=== PATIENT | male | born 1985 | race Caucasian/White ===

== ENCOUNTER 2020-11-27 02:36 | Emergency (ER) | payer OTHER ==
[~2020-11-27] VITALS: Ht 177.8 cm; Wt 131.1 kg
[2020-11-27] MEDS ORDERED: KETOROLAC TROMETHAMINE 30 MG/ML VIAL IV STA (02:43)
[2020-11-27] MEDS ORDERED: ORPHENADRINE CITRATE 30 MG/ML VIAL IM ONE (02:45)
[2020-11-27 02:47] LABS: BASOPHILS % 0.1 % (0.0-1.0); HEMATOCRIT 41.2 % (38.2-49.6); HEMOGLOBIN 13.4 g/dL (14.0-18.0); LYMPHOCYTES # (AUTO) 1.5 (1.0-3.2); LYMPHOCYTES % 15.5 % (18.0-39.1); MEAN CORPUSCULAR HEMOGLOBIN 29.7 pg (28-32); MEAN CORPUSCULAR HGB CONC 32.5 g/dL (31-35); MEAN CORPUSCULAR VOLUME 91.4 fL (81-99); MONOCYTES # (AUTO) 0.6 (0.2-0.8); MONOCYTES % 5.8 % (4.4-11.3); NEUTROPHILS # (AUTO) 7.6 (2.1-6.9); NEUTROPHILS % 78.3 % (38.7-80.0); PLATELET COUNT 292 x10e3/uL (140-360); RED BLOOD COUNT 4.51 x10e6/uL (4.3-5.7); RED CELL DISTRIBUTION WIDTH 12.9 % (11.7-14.4)
[2020-11-27 02:52] VITALS: BP 105/66
[2020-11-27] MEDS ORDERED: ORPHENADRINE CITRATE 30 MG/ML VIAL ONE (02:54)
[2020-11-27] MEDS ORDERED: KETOROLAC TROMETHAMINE 30 MG/ML VIAL ONE (02:54)
[2020-11-27 03:04] LABS: ANION GAP 15.8 mmol/L (8-16); CALCIUM 8.9 mg/dL (8.4-10.2); CREATININE, SERUM 1.1 mg/dL (0.72-1.25); POTASSIUM 3.8 mmol/L (3.5-5.1)
[2020-11-27] MEDS ORDERED: ONDANSETRON HCL INJ 2MG/ML 2ML 2 MG/ML VIAL IV STA (03:31)
[2020-11-27] MEDS ORDERED: ONDANSETRON HCL INJ 2MG/ML 2ML 2 MG/ML VIAL ONE (03:39)
[2020-11-27] MEDS ORDERED: SODIUM CHLORIDE 0.9% 100 ML ONE (03:43)
[2020-11-27] MEDS ORDERED: CASIRIVIMAB/IMDEVIMAB 10 ML in SODIUM CHLORIDE 0.9% 100 ML IV ONE (03:45)
[2020-11-27] MEDS ORDERED: GADOBENATE DIMEGLUMINE 1 ML IV ONE (04:04)
== END 2020-11-27 05:32 | disposition home or self-care (01) ==
LOC: ER 02:43
DX: U07.1 COVID-19 (principal); M54.41 Lumbago with sciatica, right side; I10 Essential (primary) hypertension; E78.5 Hyperlipidemia, unspecified; G47.00 Insomnia, unspecified
CPT/HCPCS: 36415; 72158; 80048; 85025; 99283; A9577; J1885; J2360; J2405; J7050; U0002

== ENCOUNTER 2021-11-28 18:11 | Observation (INO) | payer OTHER ==
[~2021-11-28] VITALS: Ht 180.3 cm; Wt 131.5 kg
[2021-11-28] MEDS ORDERED: SODIUM CHLORIDE 0.9% 1000ML 1,000 ML IV ONE ×2 (19:00→21:45)
[2021-11-28] MEDS ORDERED: Morphine 4mg INJECTION 4 MG/ML INJ IV PRN (19:00)
[2021-11-28 19:08] LABS: BASOPHILS % 0.2 % (0.0-1.0); EOSINOPHILS # (AUTO) 0.1 (0.0-0.4); EOSINOPHILS % 0.3 % (0.0-6.0); HEMATOCRIT 44.8 % (38.2-49.6); HEMOGLOBIN 14.6 g/dL (14.0-18.0); LYMPHOCYTES # (AUTO) 1.4 (1.0-3.2); LYMPHOCYTES % 8.7 % (18.0-39.1); MEAN CORPUSCULAR HEMOGLOBIN 29.8 pg (28-32); MEAN CORPUSCULAR HGB CONC 32.6 g/dL (31-35); MEAN CORPUSCULAR VOLUME 91.4 fL (81-99); MONOCYTES % 6.4 % (4.4-11.3); NEUTROPHILS # (AUTO) 13.3 (2.1-6.9); NEUTROPHILS % 84.1 % (38.7-80.0); PLATELET COUNT 342 x10e3/uL (140-360); RED CELL DISTRIBUTION WIDTH 11.8 % (11.7-14.4)
[2021-11-28] MEDS ORDERED: IOPAMIDOL 370 MG/ML 100 ML INFUS..BTL INJ ONE (19:19)
[2021-11-28 19:27] LABS: ALBUMIN 4.3 g/dL (3.5-5.0); ALBUMIN/GLOBULIN RATIO 1.3 (0.8-2.0); ANION GAP 15.7 mmol/L (8-16); CALCIUM 9.6 mg/dL (8.4-10.2); CREATININE, SERUM 1.12 mg/dL (0.72-1.25); POTASSIUM 3.7 mmol/L (3.5-5.1)
[2021-11-28] MEDS: ONDANSETRON HCL INJ 2MG/ML 2ML 2 MG/ML VIAL IV PRN (19:35)
[2021-11-28] MEDS ORDERED: ACETAMINOPHEN 325 MG TAB PO STA (19:57)
[2021-11-28] MEDS ORDERED: HYDROMORPHONE 1MG/1ML INJ IV STA (20:36)
[2021-11-28] MEDS ORDERED: ACETAMINOPHEN 1000 MG/100 ML IV STA (21:04)
[2021-11-28] MEDS ORDERED: ACETAMINOPHEN 1000 MG/100 ML 100 ML IV ONE (21:14)
[2021-11-28] MEDS ORDERED: HYDROMORPHONE 1MG/1ML INJ IV PRN (22:00)
[2021-11-28] MEDS: SODIUM CHLORIDE 0.9% 1000ML 1,000 ML IV SCH (22:00)
[2021-11-28] MEDS ORDERED: ONDANSETRON HCL INJ 2MG/ML 2ML 2 MG/ML VIAL IV PRN (22:00)
[2021-11-28] MEDS ORDERED: SODIUM CHLORIDE 0.9% 1000ML 1,000 ML ONE (22:03)
[2021-11-28 22:13] LABS: CLARITY,URINE CLEAR (CLEAR); COLOR,URINE YELLOW (YELLOW); KETONES,URINE NEGATIVE (NEGATIVE); LEUKOCYTE ESTERASE ,URINE NEGATIVE (NEGATIVE); NITRITE,URINE NEGATIVE (NEGATIVE); PROTEIN,URINE DIPSTICK NEGATIVE (NEGATIVE); URINE UROBILINOGEN 0.2 mg/dL (0.2 - 1)
[2021-11-28 22:17] LABS: BACTERIA,URINE FEW /HPF; EPITHELIAL CELLS,URINE FEW /LPF; WBC,URINE (MAN) 0-5 /HPF (0-5)
[2021-11-28] MEDS ORDERED: DIATRIZOATE MEGL/DIATRIZOA SOD 30 ML BTL PO ONE (22:22)
[2021-11-28] MEDS ORDERED: DEXTROSE 50% SYRINGE 50 ML IV PRN (23:00)
[2021-11-28] MEDS ORDERED: LIDOCAINE 4% PATCH TP PRN (23:00)
[2021-11-28] MEDS ORDERED: POTASSIUM CHLORIDE 20 MEQ TAB CR PO PRN (23:00)
[2021-11-28] MEDS ORDERED: BENZONATATE 100 MG CAP PO PRN (23:00)
[2021-11-28] MEDS ORDERED: MELATONIN 5 MG TABLET PO PRN (23:00)
[2021-11-28] MEDS ORDERED: SIMETHICONE 80 MG CHEW PO PRN (23:00)
[2021-11-28] MEDS ORDERED: KETOROLAC TROMETHAMINE 30 MG/ML VIAL IV PRN (23:00)
[2021-11-28] MEDS ORDERED: HYDRALAZINE HCL 20 MG/ML VIAL IV PRN (23:00)
[2021-11-28] MEDS ORDERED: ALBUTEROL/IPRATROPIUM 3 ML NEB NEB PRN (23:00)
[2021-11-28] MEDS ORDERED: DIPHENHYDRAMINE HCL 25 MG CAP PO PRN (23:00)
[2021-11-28] MEDS ORDERED: DOCUSATE SODIUM 100 MG CAP PO PRN (23:00)
[2021-11-28] MEDS ORDERED: POLYETHYLENE GLYCOL 3350 17 GM PACK PO ONE (23:15)
[2021-11-28] MEDS: DICYCLOMINE HCL 20 MG TAB PO SCH (23:15)
[2021-11-29] VITALS (8 sets, daily range): BP systolic 106–134; BP diastolic 65–81
[2021-11-29] MEDS ORDERED: METOCLOPRAMIDE HCL 10 MG/2ML VIAL IV SCH
[2021-11-29] MEDS: ACETAMINOPHEN 325 MG TAB PO PRN ×3 (00:36→23:53)
[2021-11-29] MEDS: Morphine 2mg Syringe 2 MG/ML SYR IV PRN ×2 (00:37→05:12)
[2021-11-29] MEDS: ONDANSETRON HCL INJ 2MG/ML 2ML 2 MG/ML VIAL IV PRN ×3 (00:38→21:17)
[2021-11-29] MEDS ORDERED: PROTONIX20 MG PO (04:45)
[2021-11-29] MEDS ORDERED: ATORVASTATIN CA20 MG PO (04:46)
[2021-11-29] MEDS ORDERED: LUNESTA3 MG PO (04:47)
[2021-11-29] MEDS ORDERED: LOSARTAN POTASS25 MG PO (04:48)
[2021-11-29] MEDS ORDERED: MELOXICAM7.5 MG PO (04:48)
[2021-11-29] MEDS ORDERED: DICYCLOMINE HCL10 MG PO (04:49)
[2021-11-29] MEDS ORDERED: ONDANSETRON ODT8 MG PO (04:50)
[2021-11-29] MEDS ORDERED: HYDROCODON-ACE1 EAC9 PO (04:54)
[2021-11-29] MEDS ORDERED: TIZANIDINE HCL4 M1 PO (04:54)
[2021-11-29] MEDS: METOCLOPRAMIDE HCL 10 MG/2ML VIAL IV SCH ×5 (05:12→23:53)
[2021-11-29 06:02] LABS: BASOPHILS % 0.3 % (0.0-1.0); EOSINOPHILS % 0.1 % (0.0-6.0); HEMATOCRIT 38.7 % (38.2-49.6); HEMOGLOBIN 12.8 g/dL (14.0-18.0); LYMPHOCYTES # (AUTO) 1.9 (1.0-3.2); LYMPHOCYTES % 11.9 % (18.0-39.1); MEAN CORPUSCULAR HEMOGLOBIN 29.3 pg (28-32); MEAN CORPUSCULAR HGB CONC 33.1 g/dL (31-35); MEAN CORPUSCULAR VOLUME 88.6 fL (81-99); MONOCYTES # (AUTO) 1.4 (0.2-0.8); MONOCYTES % 8.9 % (4.4-11.3); NEUTROPHILS # (AUTO) 12.4 (2.1-6.9); NEUTROPHILS % 78.1 % (38.7-80.0); PLATELET COUNT 299 x10e3/uL (140-360); RED BLOOD COUNT 4.37 x10e6/uL (4.3-5.7); RED CELL DISTRIBUTION WIDTH 12.2 % (11.7-14.4)
[2021-11-29 06:28] LABS: ALBUMIN 3.7 g/dL (3.5-5.0); ALBUMIN/GLOBULIN RATIO 1.4 (0.8-2.0); ANION GAP 12.9 mmol/L (8-16); CALCIUM 8.4 mg/dL (8.4-10.2); CREATININE, SERUM 1.11 mg/dL (0.72-1.25); POTASSIUM 3.9 mmol/L (3.5-5.1)
[2021-11-29 06:44] LABS: CHOL/HDL RATIO 2.8 (3.9-4.7); MAGNESIUM 1.7 MG/DL (1.3-2.1)
[2021-11-29 06:45] LABS: CREATINE KINASE 132 IU/L (30-200)
[2021-11-29] MEDS: SODIUM CHLORIDE 0.9% 1000ML 1,000 ML IV SCH ×3 (07:00→23:53)
[2021-11-29] MEDS: PANTOPRAZOLE SOD 40 MG TABEC PO SCH (08:00)
[2021-11-29] MEDS: DICYCLOMINE HCL 20 MG TAB PO SCH ×3 (09:33→20:45)
[2021-11-29] MEDS: Morphine 4mg INJECTION 4 MG/ML INJ IV PRN ×3 (09:38→21:16)
[2021-11-29 15:35] LABS: CREATINE KINASE 135 IU/L (30-200)
[2021-11-29] MEDS ORDERED: ENOXAPARIN SOD INJ 40 MG/0.4 ML SYR SC SCH (17:00)
[2021-11-29] MEDS ORDERED: ATORVASTATIN 20 MG TAB PO SCH (21:00)
[2021-11-30] VITALS: BP 102/65
[2021-11-30] MEDS: ONDANSETRON HCL INJ 2MG/ML 2ML 2 MG/ML VIAL IV PRN (03:42)
[2021-11-30] MEDS: Morphine 4mg INJECTION 4 MG/ML INJ IV PRN ×2 (03:42→09:27)
[2021-11-30 04:00] VITALS: BP 120/72
[2021-11-30] MEDS: METOCLOPRAMIDE HCL 10 MG/2ML VIAL IV SCH ×2 (05:18→12:00)
[2021-11-30 06:31] LABS: ALBUMIN 3.3 g/dL (3.5-5.0); ALBUMIN/GLOBULIN RATIO 1.2 (0.8-2.0); ANION GAP 9.3 mmol/L (8-16); CALCIUM 8.5 mg/dL (8.4-10.2); CREATININE, SERUM 1.12 mg/dL (0.72-1.25); POTASSIUM 3.3 mmol/L (3.5-5.1)
[2021-11-30] MEDS: SODIUM CHLORIDE 0.9% 1000ML 1,000 ML IV SCH ×2 (07:00→13:41)
[2021-11-30 07:02] LABS: BASOPHILS % 0.4 % (0.0-1.0); EOSINOPHILS # (AUTO) 0.2 (0.0-0.4); EOSINOPHILS % 1.6 % (0.0-6.0); HEMATOCRIT 38.2 % (38.2-49.6); HEMOGLOBIN 12.8 g/dL (14.0-18.0); LYMPHOCYTES # (AUTO) 2.3 (1.0-3.2); LYMPHOCYTES % 20.9 % (18.0-39.1); MEAN CORPUSCULAR HEMOGLOBIN 31.3 pg (28-32); MEAN CORPUSCULAR HGB CONC 33.5 g/dL (31-35); MONOCYTES # (AUTO) 0.9 (0.2-0.8); MONOCYTES % 7.9 % (4.4-11.3); NEUTROPHILS # (AUTO) 7.5 (2.1-6.9); NEUTROPHILS % 68.9 % (38.7-80.0); PLATELET COUNT 276 x10e3/uL (140-360); RED BLOOD COUNT 4.09 x10e6/uL (4.3-5.7); RED CELL DISTRIBUTION WIDTH 12.2 % (11.7-14.4)
[2021-11-30 07:04] LABS: MEAN CORPUSCULAR VOLUME 93.4 fL (81-99)
[2021-11-30 08:00] VITALS: BP 113/64
[2021-11-30] MEDS: PANTOPRAZOLE SOD 40 MG TABEC PO SCH (08:15)
[2021-11-30 08:40] VITALS: BP 112/64
[2021-11-30] MEDS ORDERED: LOSARTAN POTASSIUM 25 MG TAB PO SCH (09:00)
[2021-11-30] MEDS: DICYCLOMINE HCL 20 MG TAB PO SCH (09:22)
[2021-11-30 11:31] VITALS: BP 123/73
[2021-11-30] MEDS ORDERED: CIPRO500 MG PO (14:35)
[2021-11-30] MEDS ORDERED: METRONIDAZOLE500 MG PO (14:36)
== END 2021-11-30 15:15 | disposition home or self-care (01) ==
LOC: ER 18:26 → INTOOBSV 21:56 → ERHOLD 21:56 → MED/SURG3 23:37
PROVIDERS: ADMIT Internal Medicine; ATTEND Internal Medicine
DX: R10.84 Generalized abdominal pain (principal); I10 Essential (primary) hypertension; E78.5 Hyperlipidemia, unspecified; G89.4 Chronic pain syndrome; E66.01 Morbid (severe) obesity due to excess calories; Z98.890 Other specified postprocedural states; Z68.41 Body mass index [BMI] 40.0-44.9, adult; Z20.822 Contact with and (suspected) exposure to COVID-19
CPT/HCPCS: 36415 ×3; 71250; 74177; 80053 ×3; 80061; 81001; 82150; 82550 ×2; 82553 ×2; 83605 ×2; 83690; 83735; 84484 ×2; 85025 ×3; 87040; 87086; 87400; 99284; G0378 ×3; J0131; J1170; J1650; J2270 ×4; J2405 ×3; J2543 ×3; J2765 ×2; J7030 ×3; Q9963; Q9967; S0164 ×2; U0002